=== PATIENT | male | born 1935 | race Caucasian/White ===

== ENCOUNTER 2023-03-02 13:33 | Emergency (ER) | payer OTHER ==
[~2023-03-02] VITALS: Ht 177.8 cm; Wt 81.7 kg
[2023-03-02 17:30] VITALS: BP 150/72
== END 2023-03-02 17:49 | disposition home or self-care (01) ==
LOC: ER 13:33
DX: S42.101A Fracture of unspecified part of scapula, right shoulder, initial encounter for closed fracture (principal); S01.111A Laceration without foreign body of right eyelid and periocular area, initial encounter; W01.198A Fall on same level from slipping, tripping and stumbling with subsequent striking against other object, initial encounter; Y92.481 Parking lot as the place of occurrence of the external cause; Y93.01 Activity, walking, marching and hiking
CPT/HCPCS: 12011; 70450; 72125; 73030; 90471; 90714; 90715; 99284-25